=== PATIENT | female | born 1955 | race Caucasian/White ===

== ENCOUNTER 2016-06-27 12:45 | Emergency (ER) | payer OTHER ==
[~2016-06-27] VITALS: Ht 172.7 cm; Wt 101.9 kg
[2016-06-27 12:51] VITALS: BP 147/85; PULSE 85; RESP 16; TEMP 98.2; O2SAT 96
[2016-06-27] MEDS ORDERED: MULT-120 PO (13:14)
--- NOTE | 2016-06-27 13:17 | PD ---
HPI Chief Complaint: ENT Complaint Time Seen by Provider: 12:59 Travel History International Travel<30 days: No Contact w/Intl Traveler<30days: No Traveled to known affect area: No History of Present Illness HPI 60-year-old female from [facility] presents the emergency department with a day history of right ear pain for which she has been using some drops from a doctor in [place]. She states her pain is getting worse in the right ear only. She denies dental pain. She denies fever, chills, or other significant upper respiratory symptoms other than sinus congestion and postnasal drip. She has no shortness of breath or chest pain. She has no significant headache but does feel congested in her sinuses. She denies sore throat. She has no nausea or abdominal complaints. She has no known drug allergies. [facility]LY [facility] Social History Alcohol Use: Yes Tobacco Use: No Substance Use: No Allergies-Medications (Allergen,Severity, Reaction): Coded Allergies: No Known Allergies (Unverified , 06/27/16) Reported Meds & Prescriptions Reported Meds & Active Scripts Active Meclizine (Meclizine HCl) 12.5 Mg Tab 12.5 Mg PO TID PRN Levaquin (Levofloxacin) 500 Mg Tab 500 Mg PO DAILY 10 Days Ibuprofen 600 Mg Tab 600 Mg PO Q6H PRN Flonase Allergy Relief Children Nasal [place] (Fluticasone Nasal [place]) 50 Mcg/ Act [place] 2 [place] EACH NARE DAILY 50 mcg/spray Ciprodex Otic Drops (Ciprofloxacin-Dexamethasone Otic Drops) 0.3-0.1% Susp 4 Drop RIGHT EAR BID Reported Multivitamin Women (Multiple Vitamins W/ Minerals) 1 Tab Tab 1 Tab PO DAILY Review of Systems Except as stated in HPI: all other systems reviewed are Neg General / Constitutional: No: Fever, Chills Eyes: No: Visual changes HENT: Positive: Rhinitis, Rhinorrhea, Congestion, Ear Discharge, Earache, No: Headaches, Sore Throat, Nosebleed, Neck Stiffness, Neck Pain, Gingival Bleeding , Dental Difficulties Cardiovascular: No: Chest Pain or Discomfort, Dyspnea on exertion Respiratory: Positive: Cough, No: Shortness of Breath, Wheezing, Sneezing, Orthopnea, Hemoptysis, Night Sweats, Pleuritic Pain Gastrointestinal: No: Nausea, Vomiting, Diarrhea, Abdominal Pain Genitourinary: No: Dysuria Musculoskeletal: No: Pain Skin: No Rash Neurologic: No: Weakness Psychiatric: No: Depression Endocrine: No: Polydipsia Hematologic/Lymphatic: No: Easy Bruising Physical Exam Narrative GENERAL: Patient appears no acute distress. SKIN: Warm and dry. Normal color. Normal turgor. No rash. HEAD: Atraumatic. Normocephalic. Patient is tenderness along the anterior right pinna and with movement of the pinna on the right side. EYES: Pupils equal and round. No scleral icterus. No injection or drainage. ENT: No nasal bleeding or discharge. Mucous membranes pink and moist. Right ear canal is moderately swollen, with yellowish green discharge noted. TM is unable to to be visualized left TM and auditory canal are normal. Pharynx shows cobblestoning and mild erythema nasal drip present. Patient has moderate maxillary sinus tenderness more on the right than the left. NECK: Trachea midline. Supple and nontender. No significant lymphadenopathy. CARDIOVASCULAR: Regular rate and rhythm. RESPIRATORY: No accessory muscle use. Clear to auscultation. Breath sounds equal bilaterally. GASTROINTESTINAL: Abdomen soft, non-tender, nondistended. Hepatic and splenic margins not palpable. MUSCULOSKELETAL: Extremities without clubbing, cyanosis, or edema. No obvious deformities. NEUROLOGICAL: Awake and alert. No obvious cranial nerve deficits. Motor grossly within normal limits. Five out of 5 muscle strength in the arms and legs. Normal speech. PSYCHIATRIC: Appropriate mood and affect; insight and judgment normal. Data Data Last Documented VS Vital Signs Date Time Temp Pulse Resp B/P Pulse Ox O2 Delivery O2 Flow Rate FiO2 06/27/16 12:51 98.2 85 16 147/85 96 MDM Medical Decision Making Medical Screen Exam Complete: Yes Emergency Medical Condition: Yes Differential Diagnosis Dizziness secondary to otitis externa. Sinusitis. Otitis externa not responding to Cortisporin. Narrative Course Patient is medically stable at time of exam. Patient is examined with verification clerk. Patient will be given Levaquin 500 mg daily 10 days. Patient will be given Ciprodex optic drops 2-3 drops in the right ear twice a day 10 days. Patient is given Flonase nasal spray 2 sprays each nostril daily. Patient also given meclizine 12.5 mg one every 6 hours when necessary dizziness. #20. Patient to follow with a local primary care physician or return to emergency Department with any worsening symptoms if necessary. Diagnosis Primary Impression: Otitis externa of right ear Qualified Code: H60.61 - Chronic otitis externa of right ear, unspecified type Additional Impressions: Sinusitis, acute maxillary Qualified Code: J01.00 - Acute maxillary sinusitis, recurrence not specified Vertigo Referrals: [facility] Primary Care Physician Patient Instructions: Benign Paroxysmal Positional Vertigo (ED), General Instructions, Otitis Externa (ED), Sinusitis (ED) Additional Instructions: Patient is examined with verification clerk. Patient will be given Levaquin 500 mg daily 10 days. Patient will be given Ciprodex optic drops 2-3 drops in the right ear twice a day 10 days. Patient is given Flonase nasal spray 2 sprays each nostril daily. Patient also given meclizine 12.5 mg one every 6 hours when necessary dizziness. #20. Ibuprofen 600mg QID as needed for ear pain. #40. Patient to follow with a local primary care physician or return to emergency Department with any worsening symptoms if necessary. Med/Other Pt SpecificInfo: Prescription(s) given Scripts Meclizine 12.5 Mg Tab12.5 Mg PO TID PRN (VERTIGO) #20 TAB Ref 0 Prov:Heather Abreu MD 06/27/16 Levofloxacin (Levaquin)500 Mg [id number] Mg PO DAILY 10 Days Ref 0 Prov:Heather Abreu MD 06/27/16 Ibuprofen 600 Mg [id number] Mg PO Q6H PRN (Pain/Inflammation) #40 TAB Prov:Heather Abreu MD 06/27/16 Fluticasone Nasal [place] (Flonase Allergy Relief Children Nasal [place])50 Mcg/Act Spray2 [place] EACH NARE DAILY #1 BOTTLE 50 mcg/spray Prov:Heather Abreu MD 06/27/16 Ciprofloxacin-Dexamethasone Otic Drops (Ciprodex Otic Drops)0.3-0.1% Susp4 Drop RIGHT EAR BID #1 BOTTLE Ref 0 Prov:Heather Abreu MD 06/27/16 Disposition: 01 DISCHARGE HOME Condition: Stable Clark Austin June 27, 2016 13:17
[2016-06-27] MEDS ORDERED: IBUP-232 PO (13:19)
[2016-06-27] MEDS ORDERED: FLUT1SPR9 EACH NARE (13:19)
[2016-06-27] MEDS ORDERED: MECL12.574 PO (13:19)
[2016-06-27] MEDS ORDERED: LEVA500T PO (13:19)
[2016-06-27] MEDS ORDERED: CIPR0.3S RIGHT EAR (13:19)
== END 2016-06-27 13:50 | disposition home or self-care (01) ==
LOC: PHEFT 12:45
DX: H60.61 Unspecified chronic otitis externa, right ear (principal); J01.00 Acute maxillary sinusitis, unspecified
CPT/HCPCS: 99283

== ENCOUNTER → 2016-12-08 | Outpatient (CLI) | payer OTHER ==
[~2016-12-08] MED LIST: CIPR0.3S RIGHT EAR; FLUT1SPR9 EACH NARE; IBUP-232 PO; LEVA500T PO; MECL12.574 PO; MULT-120 PO
--- NOTE | 2016-12-13 11:59 | RSPPFT ---
DATE OF PROCEDURE: 12/08/16 COMMENTS: Spirometry shows FVC of 3.3 at 97% of predicted, FEV1 of 2.6 at 95%, FEV1/FVC ratio is normal. Flow is normal at FEF 25, FEF 50, FEF 75 and FEF 25-75. There is no response after bronchodilator treatment. Lung volumes show residual volume is normal. TLC is normal. Diffusion capacity is normal. Flow volume loop indicates a normal pattern. IMPRESSION: 1. Normal spirometry. 2. No response after bronchodilator treatment. 3. Normal lung volumes. 4. Diffusion capacity is normal.
== END ==
LOC: HRSP 09:22
PROVIDERS: ATTEND Specialist
DX: R06.00 Dyspnea, unspecified (principal)
CPT/HCPCS: 94060; 94726; 94729

== ENCOUNTER 2017-03-03 11:21 | Emergency (ER) | payer OTHER ==
[~2017-03-03] VITALS: Ht 170.2 cm; Wt 100.2 kg
[2017-03-03 11:41] VITALS: BP 136/67; PULSE 79; RESP 20; TEMP 99.4; O2SAT 97
[2017-03-03] MEDS ORDERED: CHOLESTEROL MED (11:56)
[2017-03-03] MEDS ORDERED: OSEL75 PO (12:39)
[2017-03-03] MEDS ORDERED: BENZ100 PO (12:39)
--- NOTE | 2017-03-03 12:40 | PD ---
HPI Chief Complaint: Cold / Flu Symptoms Time Seen by Provider: 12:08 Travel History International Travel<30 days: No Contact w/Intl Traveler<30days: No Traveled to known affect area: No History of Present Illness HPI 61-year-old female here with fever, congestion, cough 2 days. Reporting body aches and subjective fevers. Symptom severity is moderate. No aggravating factors. Unrelieved by OTC Tylenol and ibuprofen. No sick contacts or foreign travel. PFSH Past Medical History High Cholesterol: Yes Diminished Hearing: No Immunizations Current: Yes Tetanus Vaccination: > 5 Years Influenza Vaccination: No Past Surgical History Hysterectomy: Yes Other Surgery: Yes (CARPAL JE) Social History Alcohol Use: No Tobacco Use: No Substance Use: No Allergies-Medications (Allergen,Severity, Reaction): Coded Allergies: No Known Allergies (Verified Adverse Reaction, Unknown, 03/03/17) Reported Meds & Prescriptions Reported Meds & Active Scripts Active Tessalon Perles (Benzonatate) 100 Mg Cap 200 Mg PO TID PRN Tamiflu (Oseltamivir Phosphate) 75 Mg Cap 75 Mg PO BID 5 Days Reported [Cholesterol Med] Review of Systems Except as stated in HPI: all other systems reviewed are Neg General / Constitutional: Positive: Fever Eyes: No: Visual changes HENT: No: Headaches Cardiovascular: No: Chest Pain or Discomfort Respiratory: Positive: Cough Gastrointestinal: No: Abdominal Pain Genitourinary: No: Dysuria Musculoskeletal: Positive: Myalgias Skin: No Rash Neurologic: No: Weakness Physical Exam Narrative GENERAL: Alert female well-appearing in no distress. SKIN: Warm and dry. No rash. HEAD: Normocephalic. EYES: No scleral icterus. No injection or drainage. Ears/nose/throat: Clear nasal discharge. Posterior pharynx mildly erythematous. Uvula is midline. Airway is patent. NECK: Supple, trachea midline. No JVD or lymphadenopathy. CARDIOVASCULAR: Regular rate and rhythm without murmurs, gallops, or rubs. RESPIRATORY: Breath sounds equal bilaterally. No accessory muscle use. GASTROINTESTINAL: Abdomen soft, non-tender, nondistended. MUSCULOSKELETAL: No cyanosis, or edema. BACK: Nontender without obvious deformity. No CVA tenderness. Data Data Last Documented VS Vital Signs Date Time Temp Pulse Resp B/P (MAP) Pulse Ox O2 Delivery O2 Flow Rate FiO2 03/03/17 11:41 99.4 79 20 136/67 (90) 97 Orders Orders Influenzae A/B Antigen (03/03/17 12:11) MDM Medical Decision Making Medical Screen Exam Complete: Yes Emergency Medical Condition: Yes Differential Diagnosis Influenza, bronchitis, pneumonia Narrative Course 61-year-old female here with flulike illness 2 days. She is well-appearing. Her vital signs are stable. Influenza A+. Patient be treated for flu Diagnosis Primary Impression: Influenza A Referrals: Primary Care Physician Additional Instructions: Stay well hydrated by drinking any fluids. [id number] ibuprofen 800 mg every 6 hours as needed for pain and fever. Tamiflu as directed. Tessalon Perles as needed for cough. Scripts Benzonatate (Tessalon Perles) 100 Mg Cap 200 MG PO TID Y for COUGH, #15 CAP 0 Refills Prov: Thalia Turner 03/03/17 Oseltamivir (Tamiflu) 75 Mg Cap 75 MG PO BID for Mgmt Viral Infection for 5 Days, #10 CAP 0 Refills Prov: Thalia Turner 03/03/17 Disposition: 01 DISCHARGE HOME Condition: Stable Thalia Turner Mar 03, 2017 12:40
== END 2017-03-03 12:49 | disposition home or self-care (01) ==
LOC: PHEFT 11:21
DX: J09.X2 Influenza due to identified novel influenza A virus with other respiratory manifestations (principal); R50.9 Fever, unspecified; R05 Cough; M79.1 Myalgia; E78.00 Pure hypercholesterolemia, unspecified
CPT/HCPCS: 87804; 99284